=== PATIENT | male | born 1970 | race Asian ===

== ENCOUNTER 2017-02-04 00:30 | Inpatient (IN) | payer OTHER ==
[~2017-02-04] VITALS: Ht 165.1 cm; Wt 86.3 kg
[2017-02-04] MEDS ORDERED: COLC0.6T67 PO (00:33)
[2017-02-04] MEDS ORDERED: SITA25 PO (00:33)
[2017-02-04] MEDS ORDERED: LISI-661 PO (00:33)
[2017-02-04] MEDS ORDERED: GLIP5 PO (00:33)
[2017-02-04] MEDS ORDERED: ALLO100T PO (00:33)
[2017-02-04] MEDS ORDERED: ATOR20TA86 PO (00:33)
[2017-02-04] MEDS ORDERED: METF500T4 PO (00:33)
[2017-02-04 00:42] LABS: GLUCOSE COMMENT 1 Doctor Notified; GLUCOSE,POINT OF CARE 248 MG/DL (70-110)
[2017-02-04] MEDS ORDERED: SODIUM CHLORIDE 0.9% 1,000 ML IV ONE ×3 (01:00→13:15)
[2017-02-04 01:16] LABS: BASOPHILS % (AUTO) 0.3 % (0.0-2.0); EOSINOPHILS % (AUTO) 0.4 % (1.0-6.0); HEMATOCRIT 48.2 % (41-53); HEMOGLOBIN 16.6 g/dL (13.5-17.5); LYMPHOCYTES # (AUTO) 2.5 K/uL (1.0-4.8); LYMPHOCYTES % (AUTO) 14.2 % (22.0-44.0); MEAN CORPUSCULAR HEMOGLOBIN 29.3 pg (26.0-34.0); MEAN CORPUSCULAR HGB CONC 34.4 G/dL (31.0-37.0); MEAN CORPUSCULAR VOLUME 85 fL (80-100); MONOCYTES % (AUTO) 5.8 % (2.0-9.0); NEUTROPHILS % (AUTO) 79.3 % (40.0-70.0); PLATELET COUNT (AUTO) 340 K/uL (150-450); RED BLOOD CELL COUNT(AUTO) 5.67 MIL/uL (4.50-5.90); RED CELL DISTRIBUTION WIDTH 13.4 % (11.5-14.5); WHITE BLOOD COUNT (AUTO) 17.6 K/uL (4.5-11.0)
[2017-02-04 01:22] LABS: ANION GAP 15 mmol/L (8-16); CALCIUM, TOTAL 9.2 mg/dL (8.8-10.5); CARBON DIOXIDE 23 mmol/L (22-29); CHLORIDE 95 mmol/L (98-107); GLOMERULAR FILTR. RATE CALC > 60 mL/min (>60); POTASSIUM 3.9 mmol/L (3.5-5.1); SODIUM SERUM 133 mmol/L (136-145); UREA NITROGEN, BLOOD 15 mg/dL (7-18)
[2017-02-04 01:28] LABS: ALANINE AMINOTRANSFERASE 63 U/L (12-78); ALBUMIN 4.3 g/dL (3.4-5.0); ASPARTATE AMINOTRANSFERASE 30 U/L (15-37); BILIRUBIN,TOTAL 0.8 mg/dL (0.1-1.0); TOTAL PROTEIN, SERUM 8.8 g/dL (6.4-8.2)
[2017-02-04] MEDS ORDERED: KETOROLAC TROMETHAMINE 30 MG/ML VIAL IVP ONE (02:15)
[2017-02-04] MEDS ORDERED: ONDANSETRON HCL 4 MG/2 ML VIAL IVP ONE (02:15)
[2017-02-04 02:57] LABS: GLUCOSE,POINT OF CARE 239 MG/DL (70-110)
[2017-02-04 02:59] LABS: APPEARANCE,URINE CLEAR (CLEAR); GLUCOSE, URINE (UA) 250 mg/dL (NEGATIVE); KETONES,URINE 40 mg/dL (NEGATIVE); LEUKOCYTE ESTERASE ,URINE NEGATIVE (NEGATIVE); OCCULT BLOOD,URINE SMALL (NEGATIVE); PROTEIN,URINE SEE CONFIRM (NEGATIVE)
[2017-02-04 03:03] LABS: ADD UA MICROSCOPIC YES
[2017-02-04 03:10] LABS: SQUAMOUS EPITHELIAL CELL,UR Rare /LPF (None Seen); WBC,URINE 0-2 /HPF (0-5)
[2017-02-04] MEDS ORDERED: IOVERSOL 350 MG/ML 100 ML VIAL ONE (03:44)
[2017-02-04] MEDS ORDERED: BARIUM SULFATE 0.1% SUSPENSION 450 ML BOTTLE PO ONE (03:45)
[2017-02-04] MEDS ORDERED: PANTOPRAZOLE SODIUM 40 MG/VIAL IVP ONE (04:30)
[2017-02-04] MEDS ORDERED: FAMOTIDINE 10 MG/ML 2 ML VIAL IVP ONE (04:30)
[2017-02-04] MEDS ORDERED: FAMOTIDINE 40 MG in SODIUM CHLORIDE 0.9% 100 ML IV ONE (04:30)
[2017-02-04 04:46] LABS: SULFOSALICYLIC ACID,URINE 3+ (Negative)
[2017-02-04] MEDS ORDERED: ACETAMINOPHEN 325 MG TABLET PO PRN ×2 (06:00→13:15)
[2017-02-04] MEDS ORDERED: BENZOCAINE 20% 50 MCG/SPRAY 57 GM TP ONE (06:00)
[2017-02-04] MEDS ORDERED: ONDANSETRON HCL 4 MG/2 ML VIAL IVP PRN (06:00)
[2017-02-04] MEDS ORDERED: 0.9% SODIUM CHLORIDE 10 ML SYRINGE IVP PRN (06:00)
[2017-02-04] MEDS ORDERED: POTASSIUM CHL 20 MEQ/0.45% NS 1,000 ML IV ONE (06:00)
[2017-02-04] MEDS ORDERED: TETRACAINE/BENZOCAINE/BUTAMBEN 32 GM GEL TP ONE (06:00)
[2017-02-04 06:32] VITALS: BP 134/79
[2017-02-04 08:03] VITALS: BP 148/90
[2017-02-04] MEDS ORDERED: KETOROLAC TROMETHAMINE 30 MG/ML VIAL IVP PRN (08:30)
[2017-02-04 11:33] VITALS: BP 139/94
[2017-02-04] MEDS ORDERED: MORPHINE SULFATE 2 MG/ML SYRINGE IVP ONE (12:15)
[2017-02-04] MEDS ORDERED: ZOLPIDEM TARTRATE 5 MG TABLET PO PRN (13:15)
[2017-02-04] MEDS ORDERED: HYDROCODONE/ACETAMINOPHEN 5-325 MG TABLET PO PRN (13:15)
[2017-02-04] MEDS ORDERED: HydrALAZINE HCL 20 MG/ML VIAL IVP PRN (13:15)
[2017-02-04] MEDS ORDERED: BISACODYL 10 MG RECTAL RECTAL SUPPOSITORY PR PRN (13:15)
[2017-02-04] MEDS ORDERED: MAGNESIUM HYDROXIDE SUSPENSION 30 ML UDCUP PO PRN (13:15)
[2017-02-04 15:07] VITALS: BP 128/71
[2017-02-04] MEDS: HEPARIN SODIUM,PORCINE 5,000 UNITS/ML VIAL SQ SCH (15:42)
[2017-02-04] MEDS: MORPHINE SULFATE 2 MG/ML SYRINGE IVP PRN ×2 (16:20→19:40)
[2017-02-04] MEDS: ONDANSETRON HCL 4 MG/2 ML VIAL IVP PRN (19:39)
[2017-02-04 19:48] VITALS: BP 124/94
[2017-02-04] MEDS ORDERED: DOCUSATE SODIUM 100 MG CAPSULE PO SCH (21:00)
[2017-02-04 21:22] LABS: GLUCOSE,POINT OF CARE 238 MG/DL (70-110)
[2017-02-04] MEDS ORDERED: MAGNESIUM HYDROXIDE SUSPENSION 30 ML UDCUP NG PRN (21:44)
[2017-02-04] MEDS ORDERED: ACETAMINOPHEN 650 MG/20.3 ML SOLUTION UDCUP NG PRN (21:45)
[2017-02-04] MEDS ORDERED: ACETAMINOPHEN 650 MG/20.3 ML SOLUTION UDCUP PO PRN (21:45)
[2017-02-04] MEDS ORDERED: ZOLPIDEM TARTRATE 5 MG TABLET NG PRN (21:45)
[2017-02-04] MEDS: HYDROmorphone 2 MG/ML SYRINGE IVP PRN (21:54)
[2017-02-05 00:24] VITALS: BP 134/71
[2017-02-05] MEDS ORDERED: MORPHINE SULFATE 2 MG/ML SYRINGE IVP PRN (01:15)
[2017-02-05] MEDS: ONDANSETRON HCL 4 MG/2 ML VIAL IVP PRN ×2 (02:08→19:50)
[2017-02-05] MEDS: HYDROmorphone 2 MG/ML SYRINGE IVP PRN ×2 (02:09→09:12)
[2017-02-05 06:06] VITALS: BP 125/75
[2017-02-05 08:00] VITALS: BP 134/76
[2017-02-05] MEDS: PANTOPRAZOLE SODIUM 40 MG/VIAL IVP SCH (08:10)
[2017-02-05] MEDS: LISINOPRIL 10 MG TABLET NG SCH (08:11)
[2017-02-05] MEDS: HEPARIN SODIUM,PORCINE 5,000 UNITS/ML VIAL SQ SCH ×3 (08:11→15:37)
[2017-02-05] MEDS: ATORVASTATIN CALCIUM 20 MG TABLET NG SCH (08:11)
[2017-02-05] MEDS ORDERED: PANTOPRAZOLE SODIUM 40 MG DR TABLET PO SCH (09:00)
[2017-02-05] MEDS ORDERED: DOCUSATE SODIUM 100 MG CAPSULE NG SCH (09:00)
[2017-02-05 11:27] LABS: GLUCOSE COMMENT 1 Received Meds; GLUCOSE,POINT OF CARE 205 MG/DL (70-110)
[2017-02-05 11:31] VITALS: BP 119/59
[2017-02-05 15:35] VITALS: BP 115/70
[2017-02-05] MEDS: CIPROFLOXACIN 400 MG/D5% WATER 200 ML IV SCH (15:37)
[2017-02-05] MEDS: SODIUM CHLORIDE 0.9% 1,000 ML IV SCH (15:38)
[2017-02-05 17:08] LABS: GLUCOSE,POINT OF CARE 220 MG/DL (70-110)
[2017-02-05] MEDS: MetroNIDAZOLE 500 MG/NACL 100 ML IV SCH (17:32)
[2017-02-05 19:55] VITALS: BP 113/68
[2017-02-06 00:33] VITALS: BP 106/72
[2017-02-06] MEDS: MetroNIDAZOLE 500 MG/NACL 100 ML IV SCH ×3 (00:56→17:35)
[2017-02-06] MEDS: SODIUM CHLORIDE 0.9% 1,000 ML IV SCH (03:23)
[2017-02-06] MEDS: CIPROFLOXACIN 400 MG/D5% WATER 200 ML IV SCH ×2 (03:23→15:43)
[2017-02-06 03:47] VITALS: BP 132/77
[2017-02-06 07:00] LABS: BASOPHILS % (AUTO) 0.2 % (0.0-2.0); EOSINOPHILS % (AUTO) 2.6 % (1.0-6.0); HEMATOCRIT 39.8 % (41-53); HEMOGLOBIN 13.7 g/dL (13.5-17.5); LYMPHOCYTES # (AUTO) 2.3 K/uL (1.0-4.8); LYMPHOCYTES % (AUTO) 24.5 % (22.0-44.0); MEAN CORPUSCULAR HEMOGLOBIN 29.7 pg (26.0-34.0); MEAN CORPUSCULAR HGB CONC 34.4 G/dL (31.0-37.0); MEAN CORPUSCULAR VOLUME 86 fL (80-100); MONOCYTES # (AUTO) 1.6 K/uL (0.1-1.0); MONOCYTES % (AUTO) 17.1 % (2.0-9.0); NEUTROPHILS # (AUTO) 5.3 K/uL (1.8-7.7); NEUTROPHILS % (AUTO) 55.6 % (40.0-70.0); PLATELET COUNT (AUTO) 248 K/uL (150-450); RED CELL DISTRIBUTION WIDTH 13.8 % (11.5-14.5); WHITE BLOOD COUNT (AUTO) 9.6 K/uL (4.5-11.0)
[2017-02-06 07:18] LABS: ANION GAP 7 mmol/L (8-16); CALCIUM, TOTAL 7.8 mg/dL (8.8-10.5); CARBON DIOXIDE 27 mmol/L (22-29); CHLORIDE 101 mmol/L (98-107); CREATININE 1.03 mg/dL (0.60-1.30); GLOMERULAR FILTR. RATE CALC > 60 mL/min (>60); POTASSIUM 3.6 mmol/L (3.5-5.1); SODIUM SERUM 135 mmol/L (136-145); UREA NITROGEN, BLOOD 14 mg/dL (7-18)
[2017-02-06 08:42] VITALS: BP 108/66
[2017-02-06] MEDS: ATORVASTATIN CALCIUM 20 MG TABLET NG SCH (10:25)
[2017-02-06] MEDS: PANTOPRAZOLE SODIUM 40 MG/VIAL IVP SCH (10:25)
[2017-02-06] MEDS: LISINOPRIL 10 MG TABLET NG SCH (10:25)
[2017-02-06] MEDS: HEPARIN SODIUM,PORCINE 5,000 UNITS/ML VIAL SQ SCH ×3 (10:25→15:43)
[2017-02-06 11:47] VITALS: BP 111/70
[2017-02-06 15:07] VITALS: BP 111/69
== END 2017-02-06 18:45 | disposition short-term general hospital (02) | DRG 872 ==
LOC: EMS 00:32 → EEVIPCON 00:32 → 4E 06:28
PROVIDERS: ADMIT Hospitalist; ATTEND Hospitalist
DX: A41.9 Sepsis, unspecified organism (principal); K56.609 Unspecified intestinal obstruction, unspecified as to partial versus complete obstruction; K76.0 Fatty (change of) liver, not elsewhere classified; R65.10 Systemic inflammatory response syndrome (SIRS) of non-infectious origin without acute organ dysfunction; E11.65 Type 2 diabetes mellitus with hyperglycemia; E78.00 Pure hypercholesterolemia, unspecified; I10 Essential (primary) hypertension; M10.9 Gout, unspecified
CPT/HCPCS: 74000; 74010; 74177; 74250; 76700; 82962; 93005; 99285; C9113; J0744; J1170; J1644; J1885; J2270; J2405; J3480; J3490; J7030; J7050